=== PATIENT | female | born 1995 | race African-American/Black ===

== ENCOUNTER 2022-01-17 18:39 | Emergency (ER) | payer OTHER ==
[2022-01-17 18:54] VITALS: BP 122/74; PULSE 72; TEMP 98.2; BMI 23.8
[2022-01-17] MEDS ORDERED: CLINDAMYCIN HCL 300 MG CAPSULE PO ONE (19:30)
[2022-01-17] MEDS ORDERED: CLINDAMYCIN HCL 150 MG CAPSULE (FP) ONE (19:38)
== END 2022-01-17 19:53 | disposition home or self-care (01) ==
LOC: FER 18:39
DX: L66.2 Folliculitis decalvans (principal)
CPT/HCPCS: 99283-25